=== PATIENT | male | born 1965 | race Caucasian/White ===

== ENCOUNTER 2016-07-19 05:07 | Day surgery (SDC) | payer OTHER ==
[2016-07-08 14:45] VITALS: BMI 27.0
--- NOTE | 2016-07-08 15:00 | PAT Medication Instructions ---
Service Date Jul 08, 2016. Current Home Medication List Venlafaxine Hcl (Effexor Xr), 225 MG PO QAM Medication Instructions For Your Scheduled Surgery - Take the following medications the morning of surgery with a sip of water otherwise nothing to eat or drink after midnight: Venlafaxine Hcl (Effexor Xr), 225 MG PO QAM If you have any questions please call us at [phone] or [phone] or [phone]
[2016-07-08 16:07] LABS: PROTHROMBIN TIME (PATIENT) 11.1 SECONDS (9.0-12.0)
[~2016-07-19] VITALS: Ht 172.7 cm; Wt 80.5 kg
[~2016-07-19 05:07] MED LIST: VENL150C PO
[2016-07-19 05:35] VITALS: BP 141/89; PULSE 63; TEMP 36.7; O2SAT 95; Ht 172.7 cm; Wt 80.5 kg
[2016-07-19] MEDS ORDERED: IBUP-103 PO (05:43)
[2016-07-19] MEDS ORDERED: LACTATED RINGER'S 1000ML 1,000 ML IV SCH (06:00)
[2016-07-19] MEDS ORDERED: CEFAZOLIN IV 2,000 MG/60 ML D5W IV SCH (06:00)
[2016-07-19 06:13] LABS: HEMATOCRIT 39.7 % (42-52); MEAN CELL VOLUME 81.9 fL (80-100); MEAN CORPUSCULAR HEMOGLOBIN 28.2 pg (25-34); MEAN PLATELET VOLUME 8.8 fL (7.4-10.4); PLATELET COUNT 216 K/uL (130-400); RED BLOOD COUNT 4.85 M/uL (4.7-6.1); WHITE BLOOD COUNT 4.89 K/uL (4.8-10.8)
[2016-07-19 06:17] LABS: MEAN CORPUSCULAR HGB CONC 34.5 g/dl (32-36)
[2016-07-19] MEDS ORDERED: EpINEphrine INJ 1MG/ML AMP 1 MG/ML AMP ONE (06:58)
[2016-07-19] MEDS ORDERED: FENTANYL CITRATE INJ 50 MCG/1 ML 2 ML VIAL ONE ×2 (06:59→08:54)
[2016-07-19] MEDS ORDERED: MIDAZOLAM HCL 1 MG/ML 2ML VIAL ONE (06:59)
[2016-07-19] MEDS ORDERED: ROCURONIUM BROMIDE 10 MG/ML 5 ML VIAL ONE (06:59)
[2016-07-19] MEDS ORDERED: SUCCINYLCHOLINE CHLORIDE 20 MG/ML 10 ML VIAL IV ONE (06:59)
[2016-07-19] MEDS ORDERED: PROPOFOL IV EMULSION 10 MG/ML 20 ML VIAL IV ONE (06:59)
[2016-07-19] MEDS ORDERED: LIDOCAINE/EPINEPHRINE 1% 20 ML VIAL ONE (06:59)
[2016-07-19] MEDS ORDERED: LIDOCAINE HCL 2% 2 ML VIAL (20MG/ML) ONE (06:59)
--- NOTE | 2016-07-19 07:09 | History and Physical ---
History & Physical Date Jul 19, 2016. Chief Complaint right maxillary sinusitis History of Present Illness The patient is a 51 year old male with complaints of right maxillary sinusitis, likely mycetoma. Has had continual right sided drainage for the past several months. Treated with antibiotic and steroid without much improvement. Discussed options of further medical therapy vs FESS. Patient desires FESS. Additional History Hepatic Disease: No Endocrine Disorder: No Kidney Disease: No Hypertension: No Heart Disease: No Bleeding Tendencies: No Infectious Diseases: No Allergies Coded Allergies: No Known Allergies (Unverified , 07/19/16) Home Medications Scheduled Ibuprofen Tab (Advil), 400-600 MG PO Q6H Venlafaxine Hcl (Effexor Xr), 225 MG PO QAM Physical Examination Skin: warm/dry, no rash Eyes: normal inspection, EOMI, sclerae normal ENT: normal ENT inspection, pharynx normal Head: normocephalic, atraumatic Neck: supple, no adenopathy, trachea midline Respiratory/Chest: lungs clear, normal breath sounds, no respiratory distress Cardiovascular: regular rate, rhythm, no edema, no murmur Diagnosis Right maxillary sinusitis, suspect mycetoma Plan of Treatment Proceed with right maxillary antrostomy, possible anterior ethmoidectomy - [facility] [place]
[2016-07-19] MEDS ORDERED: SODIUM CHLORIDE 0.9% 1000ML 1,000 ML IV SCH (07:17)
[2016-07-19] MEDS ORDERED: HYDR-3419 PO (07:25)
[2016-07-19] MEDS ORDERED: HYDROCODONE/ACETAMOPHEN 5/325MG TAB PO PRN ×2 (07:30)
[2016-07-19] MEDS ORDERED: LABETALOL HCL IV 5 MG/ML 20ML IV PRN (07:30)
[2016-07-19] MEDS ORDERED: NALOXONE HCL 0.4 MG/1 ML VIAL/CARP IV PRN (07:30)
[2016-07-19] MEDS ORDERED: EpHEDrine SULFATE INJ 50 MG/ML AMP IV PRN (07:30)
[2016-07-19] MEDS ORDERED: ATROPINE SULFATE 0.1 MG/ML 5ML SYR IV PRN (07:30)
[2016-07-19] MEDS ORDERED: PHENYLEPHRINE 100MCG/ML 5ML SYR IV PRN (07:30)
[2016-07-19] MEDS ORDERED: MoRPHine SULFATE 2 MG/ML CARP IV PRN (07:30)
[2016-07-19] MEDS ORDERED: ONDANSETRON INJ 2 MG/ML 2 ML VIAL IV PRN ×2 (07:30)
[2016-07-19] MEDS ORDERED: FLUMAZENIL 0.1 MG/1 ML 10 ML VIAL IV PRN (07:30)
[2016-07-19] MEDS ORDERED: FENTANYL CITRATE INJ 50 MCG/1 ML 2 ML VIAL IV PRN (07:30)
[2016-07-19] MEDS ORDERED: HYDROmorphone INJ 2 MG/ML SYR/VIAL IV PRN (07:30)
[2016-07-19] MEDS ORDERED: ACETAMINOPHEN 325 MG TAB PO PRN (07:30)
--- NOTE | 2016-07-19 07:30 | Discharge Instructions ---
Discharge Instructions Date of Service Jul 19, 2016. Admission Reason for Admission: Chronic Maxillary Sinusitis Discharge Discharge Diagnosis / Problem: Sinusitis Discharge Goals Goal(s): Improve function Activity Recommendations Activity Limitations: as noted below Lifting Limitations: no more than 10 pounds Exercise/Sports Limitations: until after follow-up appointment May Resume Sexual Activity: after follow-up appointment Shower/Bathe: no limitations Driving or Machine Use: 24 hrs after surgery as long as you are not taking narcotic pain medication No strenuous activity for 2 weeks No nose blowing for 2 weeks Sneeze with mouth open . Instructions / Follow-Up Instructions / Follow-Up No strenuous activity for 2 weeks Sneeze with mouth open No nose blowing Starting tomorrow morning, use saline irrigations (Aman Med sinus rinse or netti pot) twice daily Take antibiotic as directed Call for any active bleeding from the nose (some old blood and clots are normal during irrigation) Call for any visual problems Sleep with head elevated around 30 degrees for first week after surgery Call for any fever greater than 101.5 Current Hospital Diet Patient's current hospital diet: Discharge Diet Recommended Diet: Regular Diet Fluid Restriction: None Procedures Procedures Performed: Endoscopic sinus surgery Pending Studies Studies pending at discharge: no Medical Emergencies . Who to Call and When: Medical Emergencies: If at any time you feel your situation is an emergency, please call 911 immediately. . Non-Emergent Contact Non-Emergency issues call your: Specialist Contact Number: [phone] . . "Provider Documentation" section prepared by Russell Hernandes. VTE Core Measure Inpt VTE Proph given/why not?: Treatment not indicated [place] Drug Monitoring Program Search Results: patient reviewed within database, no issues identified
[2016-07-19] MEDS ORDERED: OXYMETAZOLINE HCL 0.05% NA SPR 15 ML BTL ONE (07:32)
[2016-07-19] MEDS ORDERED: DEXAMETHASONE SOD INJ 4 MG/ML VIAL ONE (07:48)
[2016-07-19] MEDS ORDERED: ONDANSETRON INJ 2 MG/ML 2 ML VIAL ONE (07:48)
[2016-07-19] MEDS ORDERED: HEMADERM ENT APPLICATOR KIT TOP ONE (08:44)
[2016-07-19] MEDS: MEPERIDINE HCL 25 MG/ML CARP IV PRN ×2 (09:05→09:10)
[2016-07-19 09:42] VITALS: PULSE 94
[2016-07-19 09:50] VITALS: BP 165/83; TEMP 36.5; O2SAT 97
--- NOTE | 2016-07-19 09:55 | Anesthesiology Progress Note ---
Anesthesia Post Op Note Date & Time Jul 19, 2016 at 09:56 Vital Signs Pain Intensity: 0 Vital Signs Past 12 Hours Date Time Temp Pulse Resp B/P Pulse Ox O2 Delivery O2 Flow Rate FiO2 07/19/16 09:42 94 19 92 07/19/16 09:42 94 19 07/19/16 09:40 152/89 07/19/16 09:37 96 15 07/19/16 09:37 97 15 96 07/19/16 09:35 151/99 07/19/16 09:34 37.2 95 20 157/89 96 Room Air 07/19/16 09:32 94 12 07/19/16 09:32 93 12 98 07/19/16 09:30 157/89 07/19/16 09:27 91 0 95 07/19/16 09:27 90 0 07/19/16 09:25 147/90 07/19/16 09:24 150/91 07/19/16 09:22 93 15 96 07/19/16 09:22 93 15 07/19/16 09:21 92 21 07/19/16 09:21 94 21 96 07/19/16 09:20 163/90 07/19/16 09:16 89 7 07/19/16 09:16 92 7 100 07/19/16 09:15 163/94 07/19/16 09:11 91 12 164/90 99 07/19/16 09:11 90 12 07/19/16 09:10 144/104 07/19/16 09:06 97 14 98 07/19/16 09:06 95 14 07/19/16 09:01 36.3 101 16 156/100 100 Mask 10 07/19/16 05:35 36.7 63 18 141/89 95 Room Air Notes Mental Status: alert / awake / arousable, participated in evaluation Pt Amnestic to Procedure: Yes Nausea / Vomiting: adequately controlled Pain: adequately controlled Airway Patency, RR, SpO2: stable & adequate BP & HR: stable & adequate Hydration State: stable & adequate Anesthetic Complications: no major complications apparent
[2016-07-19 10:20] VITALS: BP 161/98; O2SAT 95
--- NOTE | 2016-07-19 10:22 | [facility] Post Operative Brief Note ---
Immediate Operative Summary Operative Date Jul 19, 2016. Pre-Operative Diagnosis Right Maxillary Sinusits Fungus Ball Post-Operative Diagnosis Right Maxillary Sinusits Fungus Ball Procedure(s) Performed Endoscopic Right Maxillary Antrostomy Surgeon Dr. Russell Hernandes Radar Systems Engineer Surgeon(s) None Estimated Blood Loss 20ml Findings right maxillary sinus mycetoma Specimens A. Right Nasal Contents Drains none Anesthesia GETA Complication(s) None Disposition Recovery Room / PACU
[2016-07-19 10:40] VITALS: BP 167/94; TEMP 36.6; O2SAT 97
--- NOTE | 2016-07-19 12:06 | OPERATIVE REPORT ---
DATE OF OPERATION: 07/19/2016 PREOPERATIVE DIAGNOSIS: Right maxillary sinusitis, suspect mycetoma. 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 PROCEDURE: Right maxillary antrostomy with Queue-ittronic fusion image guidance (extradural stereotactic navigation). SURGEON: Dr. Russell Hernandes. ASSISTANTS: None. ANESTHESIA: General endotracheal anesthesia. SPECIMEN: Right nasal contents sent to surgical pathology. COMPLICATIONS: None. DRAINS: None. ESTIMATED BLOOD LOSS: 20 mL IV FLUIDS: 800 mL URINE OUTPUT: 0 mL FINDINGS: See body of operative report. INDICATIONS AND HISTORY: This is a 51-year-old male who presented to the office with persistent postnasal drip and cough. Evaluation in the office with nasal endoscopy revealed right-sided middle meatal purulent drainage. I treated him with antibiotics and steroids and saw him back approximately 3 weeks later. At this evaluation, there was continued mucopurulent drainage. I did obtain a CT scan with fusion image guidance protocol which revealed an opacified right maxillary sinus with hyperdensities within the sinus consistent with a likely fungus ball. All the other sinuses were healthy appearing. I discussed the options with him including observation versus functional endoscopic sinus surgery, as I explained if this indeed was a fungus ball, this would likely not improve without surgery. He expressed his understanding and wished to proceed with endoscopic sinus surgery. I discussed the risks with him including bleeding, infection, orbital injury, vision loss, double vision, blurry vision, loss of vision, CSF leak, meningitis. He expressed his understanding and wished to proceed. DESCRIPTION OF THE OPERATION: The patient was brought to the operating room, identified, procedure verified. He underwent general endotracheal anesthesia and was prepped and draped in the usual fashion for sinus surgery. The [employer] fusion image guidance system was set up and noted to be good working order prior to the start of the case. Also, the patient had SCDs on and were noted to be working prior to the start of the case. Attention was directed to the right side of the nose where Afrin-soaked pledgets were placed for decongestion. After this was allowed time for decongestion to take effect, evaluation of the nose was performed with a 0-degree endoscope. Middle turbinate was identified. This was then medialized with a [place] elevator, exposing the middle meatus. The uncinate process was identified. There was some mucoid drainage emanating from the middle meatus. At this point, injection of 1% lidocaine in 1:100,000 epinephrine was performed into the lateral nasal wall. After this injection was performed, epinephrine-soaked pledgets with 1:5000 concentration were placed into the middle meatus. This was allowed time for local and the decongestant to take effect. Once this was done, uncinectomy was performed in the usual fashion. The uncinate process was unfurled with a sinus seeker. Once this was done, the pediatric backbiter was used to back bite the uncinate process at its axilla. Uncinectomy was completed with an upcutting Shahab-Cut forceps. Once this was done, attention was directed to the lateral nasal wall where the natural ostium was both visualized and the sinus seeker used to cannulate without difficulty. Once this was done, the maxillary antrostomy was performed with a straight Shahab-Cut as well as the backbiting forceps. Once this was done, confirmation with a guided suction with the Queue-ittronic fusion was noted to be in the maxillary sinus. There was abundant fungal debris. This was suctioned out with both the straight and curved suction. At this point, the Queue-ittronic shaver was used to take down any of the bony edges of the antrostomy. A fairly large antrostomy was performed to allow adequate drainage and also for removal of the fungus ball. At this point, once an adequate antrostomy was made, irrigation was performed with saline into the antrostomy to remove any further fungal debris. Approximately 240 mL of irrigation was performed. Once this was done, hemostasis was assured with placing the epinephrine-soaked pledgets back into the maxillary antrostomy and middle meatus region, allowed time for this to work. Once this was completed, they were removed and the nose was packed with a combination of Jordyn hemostatic powder as well as Stammberger Sinu-Foam. The throat pack that was placed at the beginning of the case was removed. The posterior pharyngeal wall was examined. There was no bleeding identified. The patient at this point was returned to anesthesia. He was awakened, extubated, and taken to PACU in stable condition. I attest to the content of the Intraoperative Record and any orders documented therein. Any exceptions are noted below. JONI
== END 2016-07-19 10:52 | disposition home or self-care (01) ==
LOC: C.ACU 05:07
PROVIDERS: ATTEND Otolaryngology
DX: J32.0 Chronic maxillary sinusitis (principal); B47.9 Mycetoma, unspecified; Z68.27 Body mass index [BMI] 27.0-27.9, adult; Z98.890 Other specified postprocedural states; M19.90 Unspecified osteoarthritis, unspecified site